=== PATIENT | male | born 1990 | race Caucasian/White ===

== ENCOUNTER → 2017-06-15 | Outpatient (CLI) | payer BC ==
[2017-06-15 16:20] LABS: ALT 40 U/L (21-72); AST 18 U/L (17-59); Alkaline Phosphatase 70 U/L (38-126); Anion Gap 10 mmol/L; Blood Urea Nitrogen 18 mg/dL (9-20); Calcium 9.3 mg/dL (8.4-10.2); Carbon Dioxide 26 mmol/L (22-30); Chloride 102 mmol/L (98-107); Cholesterol 139 mg/dL (<200); Glucose 120 mg/dL (74-99); HDL Cholesterol 37 mg/dL (40-60); Non-African American GFR(MDRD) >60 (>60 ml/min/1.73 sqM); Potassium 3.8 mmol/L (3.5-5.1); Sodium 138 mmol/L (137-145); Total Bilirubin 0.6 mg/dL (0.2-1.3); Total Protein 6.8 g/dL (6.3-8.2)
[2017-06-16 02:38] LABS: Urine Creatinine 183.9 mg/dL
== END | disposition home or self-care (01) ==
LOC: LABWHC1 15:35
PROVIDERS: ATTEND Internal Medicine Endocrinology, Diabetes & Metabolism
DX: E10.65 Type 1 diabetes mellitus with hyperglycemia (principal)
CPT/HCPCS: 36415; 80053; 80061; 82043; 82570

== ENCOUNTER → 2018-04-15 | Outpatient (CLI) | payer OTHER, BC ==
[2018-04-15 16:18] LABS: ALT 40 U/L (21-72); AST 22 U/L (17-59); Albumin 4.3 g/dL (3.5-5.0); Alkaline Phosphatase 54 U/L (38-126); Anion Gap 11 mmol/L; Blood Urea Nitrogen 17 mg/dL (9-20); Calcium 9.4 mg/dL (8.4-10.2); Carbon Dioxide 27 mmol/L (22-30); Chloride 102 mmol/L (98-107); Cholesterol 167 mg/dL (<200); Glucose 113 mg/dL (74-99); HDL Cholesterol 45 mg/dL (40-60); LDL Cholesterol,Calculated 111 mg/dL (0-99); Potassium 3.9 mmol/L (3.5-5.1); Sodium 140 mmol/L (137-145); Total Bilirubin 1.1 mg/dL (0.2-1.3); Total Protein 7.1 g/dL (6.3-8.2); Triglycerides 54 mg/dL (<150)
[2018-04-16 01:40] LABS: Hemoglobin A1C 7.5 % (4.0-6.0)
== END | disposition home or self-care (01) ==
LOC: LABWHC1 15:42
PROVIDERS: ATTEND Internal Medicine Endocrinology, Diabetes & Metabolism
DX: E10.65 Type 1 diabetes mellitus with hyperglycemia (principal)
CPT/HCPCS: 36415; 80053; 80061; 82043; 82570; 83036; 84443

== ENCOUNTER 2019-09-05 16:52 | Emergency (ER) | payer BC, OTHER ==
[2019-09-05 17:00] VITALS: BP 126/81; PULSE 80; TEMP 97.9
[2019-09-05 17:13] LABS: Glucose,Whole Blood 285 mg/dL (75-99)
--- NOTE | 2019-09-05 17:22 | ED ---
Recheck HPI - General Chief Complaint: Recheck/Abnormal Lab/Rx Stated Complaint: Needs insulin, High BP Time Seen by Provider: 09/05/19 17:03 Source: patient Mode of arrival: ambulatory Limitations: no limitations - History of Present Illness Initial Comments: Patient is a 29-year-old male, with past medical history diabetes type 1, presenting to the emergency department in need of a prescription for insulin. Patient states he recently switched insurance companies and he has been having an issue filling his prescription for insulin. Patient is currently out of insulin and needs more. He does have an appointment with the PCP in 2 days. He takes NovoLog. Patient has no other complaints today. He denies fever, chills, abdominal pain, nausea, vomiting. Upon arrival to the ER, his vital signs are stable. - Related Data Previous Rx's Medication Instructions Recorded Cephalexin [Keflex] 500 mg PO Q12HR 5 Days cap 02/02/16 Insulin Aspart [NovoLOG] 0 unit SQ DIRECTED #2 cart 09/05/19 Allergies Allergy/AdvReac Type Severity Reaction Status Date / Time No Known Allergies Allergy Verified 09/05/19 17:00 Review of Systems ROS Statement: Those systems with pertinent positive or pertinent negative responses have been documented in the HPI. ROS Other: All systems not noted in ROS Statement are negative. Past Medical History Past Medical History: Diabetes Mellitus History of Any Multi-Drug Resistant Organisms: None Reported Past Surgical History: Adenoidectomy Past Psychological History: No Psychological Hx Reported Smoking Status: Never smoker Past Alcohol Use History: None Reported Past Drug Use History: None Reported General Exam - General Exam Comments Initial Comments: GENERAL: Well-appearing, well-nourished and in no acute distress. HEAD: Atraumatic, normocephalic. EYES: Pupils equal round and reactive to light, extraocular movements intact, sclera anicteric, conjunctiva are normal. ENT: TMs normal, nares patent, oropharynx clear without exudates. Moist mucous membranes. NECK: Normal range of motion, supple without lymphadenopathy or JVD. LUNGS: Breath sounds clear to auscultation bilaterally and equal. No wheezes rales or rhonchi. HEART: Regular rate and rhythm without murmurs, rubs or gallops. ABDOMEN: Soft, nontender, normoactive bowel sounds. No guarding, no rebound. No masses appreciated. Continuous glucose monitor present. : Deferred EXTREMITIES: Normal range of motion, no pitting or edema. No clubbing or cyanosis. NEUROLOGICAL: Normal speech, normal gait. PSYCH: Normal mood, normal affect. SKIN: Warm, Dry, normal turgor, no rashes or lesions noted. Limitations: no limitations Course Vital Signs 09/05/19 09/05/19 16:56 17:28 Temperature 97.9 F Pulse Rate 80 Respiratory 18 20 Rate Blood Pressure 126/81 O2 Sat by Pulse 99 Oximetry Medical Decision Making - Medical Decision Making Patient is a 29-year-old male here for prescription for insulin. He is type I diabetic. Vital signs are stable upon arrival. He has an appointment with his PCP in 2 days. Patient's insulin will be refilled. Blood sugar today is 285. Patient will be given 4 units of insulin before discharge. He has no other complaints at this time. He is in agreement with this plan of care. Return parameters were discussed with the patient he verbalizes understanding. 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 Follow-up with PCP as discussed. Prescriptions: Insulin Aspart [NovoLOG] 0 unit SQ DIRECTED #2 cart Is patient prescribed a controlled substance at d/c from ED?: No Referrals: None,Stated [Primary Care Provider] - 1-2 days
[2019-09-05 17:29] VITALS: RESP 20
[2019-09-05] MEDS ORDERED: INSULIN ASPART (NovoLOG) 100 UNIT/ML VIAL SQ ONE (17:59)
== END 2019-09-05 18:11 | disposition home or self-care (01) ==
LOC: EC 16:52
DX: Z76.0 Encounter for issue of repeat prescription (principal); E10.9 Type 1 diabetes mellitus without complications; Z79.4 Long term (current) use of insulin
CPT/HCPCS: 36415; 99282

== ENCOUNTER 2020-11-01 13:16 | Emergency (ER) | payer OTHER ==
[2020-11-01 13:23] VITALS: BP 142/90; PULSE 82; RESP 20; TEMP 97.8
[2020-11-01] MEDS ORDERED: LIDOCAINE 1% INJ 10MG/ML (20 ML MDV) SQ ONE (13:58)
[2020-11-01] MEDS ORDERED: DIPH,PERTUS(ACELL)TETVAC-LF 0.5 ML VIAL IM ONE (14:20)
--- NOTE | 2020-11-01 14:55 | ED ---
Wound/Laceration HPI - General Chief Complaint: Wound/Laceration Stated Complaint: Head Lac Time Seen by Provider: 11/01/20 13:38 Source: patient Mode of arrival: ambulatory Limitations: no limitations - History of Present Illness Initial Comments: 30-year-old male presenting today for chief complaint of forehead laceration. Patient states he was bending over or when he cut his head on a sharp object. He states there is not a lot of force he denies concern for head injury itself. States he thought he might need suture repair presented to the ER for evaluation. Patient states his tetanus up-to-date. Denies any nausea vomiting visual changes headaches dizziness he denies syncope. Review systems negative upon arrival patient appears well nontoxic no acute distress - Related Data Previous Rx's Medication Instructions Recorded Insulin Aspart [NovoLOG] 0 unit SQ DIRECTED #2 cart 09/05/19 Allergies Allergy/AdvReac Type Severity Reaction Status Date / Time No Known Allergies Allergy Verified 09/05/19 17:00 Review of Systems ROS Statement: Those systems with pertinent positive or pertinent negative responses have been documented in the HPI. ROS Other: All systems not noted in ROS Statement are negative. Past Medical History Past Medical History: Diabetes Mellitus History of Any Multi-Drug Resistant Organisms: None Reported Past Surgical History: Adenoidectomy Past Psychological History: No Psychological Hx Reported Smoking Status: Never smoker Past Alcohol Use History: None Reported Past Drug Use History: None Reported General Exam - General Exam Comments Initial Comments: General: The patient is awake and alert, in no distress, and does not appear acutely ill. Eye: +3 mm pupils are equal, round and reactive to light, extra-ocular movements are intact. No nystagmus. There is normal conjunctiva bilaterally. No signs of icterus. Ears, nose, mouth and throat: There are moist mucous membranes and no oral lesions. Neck: The neck is supple, there is no tenderness or JVD. Cardiovascular: There is a regular rate and rhythm. No murmur, rub or gallop is appreciated. Respiratory: Lungs are clear to auscultation, respirations are non-labored, breath sounds are equal. No wheezes, stridor, rales, or rhonchi. Gastrointestinal: Soft, non-distended, non-tender abdomen without masses or organomegaly noted. There is no rebound or guarding present. Musculoskeletal: Normal ROM, no tenderness. Strength 5/5. Sensation intact. radial and DP pulses equal bilaterally 2+. Neurological: A&O x 3. CN II-XII intact grossly, There are no obvious motor or sensory deficits. Coordination appears grossly intact. Speech is normal. Skin: Skin is warm and dry and no rashes. 6cm laceration of the forehead. Psychiatric: Cooperative, appropriate mood & affect, normal judgment. Limitations: no limitations Course Vital Signs 11/01/20 13:20 Temperature 97.8 F Pulse Rate 82 Respiratory 20 Rate Blood Pressure 142/90 O2 Sat by Pulse 98 Oximetry Procedures - Laceration Laceration #1 Consent Obtained: verbal consent Indication: laceration Size (cm): 6 Description: linear Depth: simple, single layer Anesthesia Technique: local infiltration Amount (mls): 1 Pre-repair: wound explored, irrigated extensively Size of Sutures: 6-0 Number of Sutures: 8 Patient Tolerated Procedure: well, no complications Medical Decision Making - Medical Decision Making cc forheead laceratino from sharp object. no fall. no scalp hematoma. no foreign body. overall superficial but does require repaired. irrigated. repaired. pt tolerated well. return parameters and care discussed pt discharged appearing well Disposition Clinical Impression: Forehead laceration Disposition: HOME SELF-CARE Condition: Good Instructions (If sedation given, give patient instructions): Care For Your Stitches (ED), Facial Laceration (ED) Additional Instructions: Please use medication as discussed. Please follow-up for suture removal in 5 days, keep covered at work, apply neosporin at night and return for signs of infection (increasing redness, drainage) Please return to emergency room if the symptoms increase or worsen or for any other concerns. Is patient prescribed a controlled substance at d/c from ED?: No Referrals: Jennifer Perez MD [Primary Care Provider] - 1-2 days Time of Disposition: 14:55
== END 2020-11-01 15:05 | disposition home or self-care (01) ==
LOC: EC 13:16
DX: S01.81XA Laceration without foreign body of other part of head, initial encounter (principal); E11.9 Type 2 diabetes mellitus without complications; Z79.4 Long term (current) use of insulin; W26.9XXA Contact with unspecified sharp object(s), initial encounter
CPT/HCPCS: 99282; 12014; J2001

== ENCOUNTER 2023-05-26 11:23 | Inpatient (IN) | payer OTHER ==
[2023-05-26] MEDS ORDERED: SODIUM CHLORIDE 0.9% 2,000 ML IV ONE ×2 (11:43→16:49)
[2023-05-26 12:42] LABS: ALT 24 U/L (4-49); AST 21 U/L (17-59); African American GFR (CKD) >90 (>60 ml/min/1.73 sqM); Albumin 5.3 g/dL (3.5-5.0); Alkaline Phosphatase 109 U/L (38-126); Anion Gap 26 mmol/L; Blood Urea Nitrogen 19 mg/dL (9-20); Calcium 9.4 mg/dL (8.4-10.2); Carbon Dioxide 10 mmol/L (22-30); Chloride 96 mmol/L (98-107); Glucose 378 mg/dL (74-99); Magnesium 1.9 mg/dL (1.6-2.3); Non-African American GFR(CKD) >90 (>60 ml/min/1.73 sqM); Potassium 5.3 mmol/L (3.5-5.1); Sodium 132 mmol/L (137-145); Total Bilirubin 1.2 mg/dL (0.2-1.3); Total Protein 8.4 g/dL (6.3-8.2)
[2023-05-26 12:48] LABS: VBG PH 7.16 (7.31-7.41)
[2023-05-26 13:38] LABS: Basophils % (A) 0 %; Eosinophils % (A) 0 %; HCT 51.4 % (39.0-53.0); HGB 17.5 gm/dL (13.0-17.5); Lymphocytes # (A) 0.6 k/uL (1.0-4.8); Lymphocytes % (A) 6 %; MCH 29.3 pg (25.0-35.0); MCV 86.2 fL (80.0-100.0); Mean Platelet Volume 8.8; Monocytes # (A) 0.4 k/uL (0-1.0); Monocytes % (A) 4 %; Neutrophils % (A) 90 %; Platelet Count 259 k/uL (150-450); RBC 5.97 m/uL (4.30-5.90); RDW 12.7 % (11.5-15.5); WBC 11.1 k/uL (3.8-10.6)
[2023-05-26 13:41] LABS: Appearance,Urine Clear (Clear); Bilirubin,Urine Negative (Negative); Blood,Urine Negative (Negative); Color,Urine Colorless; Glucose,Urine (UA) 4+ (Negative); Leukocyte Esterase,Urine Negative (Negative); Nitrite,Urine Negative (Negative); Protein,Urine Trace (Negative); Specific Gravity,Urine 1.027 (1.001-1.035); Urobilinogen,Urine <2.0 mg/dL (<2.0)
[2023-05-26 13:51] LABS: Ketones,Urine 4+ (Negative)
--- NOTE | 2023-05-26 13:54 | ED ---
General Adult HPI - General Chief complaint: Recheck/Abnormal Lab/Rx Stated complaint: high blood sugar Time Seen by Provider: 05/26/23 11:41 Source: patient, RN notes reviewed Mode of arrival: ambulatory Limitations: no limitations - History of Present Illness Initial comments: 33-year-old male presents emergency Department chief complaint of hyperglycemia. Patient states his insulin pump broke he contact the company is supposed to be here today by his blood sugar was elevated. Patient states he just feels off. Denies any significant vomiting fever or chills no recent URI symptoms. Patient any chest pain or palpitations denies any headache or dizziness. - Related Data Previous Rx's Medication Instructions Recorded Insulin Aspart [NovoLOG] 0 unit SQ DIRECTED #2 cart 09/05/19 Allergies Allergy/AdvReac Type Severity Reaction Status Date / Time No Known Allergies Allergy Verified 05/26/23 11:39 Review of Systems ROS Statement: Those systems with pertinent positive or pertinent negative responses have been documented in the HPI. ROS Other: All systems not noted in ROS Statement are negative. Past Medical History Past Medical History: Diabetes Mellitus History of Any Multi-Drug Resistant Organisms: None Reported Past Surgical History: Adenoidectomy Past Psychological History: No Psychological Hx Reported Smoking Status: Never smoker Past Alcohol Use History: None Reported Past Drug Use History: None Reported General Exam Limitations: no limitations General appearance: alert, in no apparent distress Head exam: Present: atraumatic, normocephalic, normal inspection Eye exam: Present: normal appearance, PERRL, EOMI. Absent: scleral icterus, conjunctival injection, periorbital swelling Respiratory exam: Present: normal lung sounds bilaterally. Absent: respiratory distress, wheezes, rales, rhonchi, stridor Cardiovascular Exam: Present: normal rhythm, tachycardia, normal heart sounds. Absent: systolic murmur, diastolic murmur, rubs, gallop, clicks GI/Abdominal exam: Present: soft, normal bowel sounds. Absent: distended, tenderness, guarding, rebound, rigid Neurological exam: Present: alert, oriented X3 Course Vital Signs 05/26/23 05/26/23 11:37 13:12 Temperature 97.9 F Pulse Rate 102 H 106 H Respiratory 18 18 Rate Blood Pressure 123/69 138/80 O2 Sat by Pulse 97 97 Oximetry Medical Decision Making - Medical Decision Making Was pt. sent in by a medical professional or institution ([employer], PROCESS MANUFACTURING ENGINEER, urgent care, hospital, or usp...) When possible be specific @ -[No] Did you speak to anyone other than the patient for history (EMS, parent, family, police, friend...)? What history was obtained from this source @ -[No] Did you review nursing and triage notes (agree or disagree)? Why? @ -[I reviewed and agree with nursing and triage notes] Were old charts reviewed (outside hosp., previous admission, EMS record, old EKG, old radiological studies, urgent care reports/EKG's, usp records)? Report findings @ -[No old charts were reviewed] Differential Diagnosis (chest pain, altered mental status, abdominal pain women, abdominal pain men, vaginal bleeding, weakness, fever, dyspnea, syncope, headache, dizziness, GI bleed, back pain, seizure, CVA, palpatations, mental health, musculoskeletal)? @ -[Hyperglycemia, DKA] EKG interpreted by me (3pts min.). @ -[None] X-rays interpreted by me (1pt min.). @ -[None done] CT interpreted by me (1pt min.). @ -[None done] U/S interpreted by me (1pt. min.). @ -[None done] What testing was considered but not performed or refused? (CT, X-rays, U/S, labs)? Why? @ -[None] What meds were considered but not given or refused? Why? @ -[None] Did you discuss the management of the patient with other professionals (professionals i.e. [employer] Larry, PROCESS MANUFACTURING ENGINEER, lab, RT, psych nurse, social work administrator, field installer, teacher, supply officer, catalytic case operator)? Give summary @ -[Sound physician for admission for DKA] Was smoking cessation discussed for >3mins.? @ -[No] Was critical care preformed (if so, how long)? @ -[35 mins Were there social determinants of health that impacted care today? How? (Homelessness, low income, unemployed, alcoholism, drug addiction, transportation, low edu. Level, literacy, decrease access to med. care, correction, rehab)? @ -[No] Was there de-escalation of care discussed even if they declined (Discuss DNR or withdrawal of care, Hospice)? DNR status @ -[No] What co-morbidities impacted this encounter? (DM, HTN, Smoking, COPD, CAD, Cancer, CVA, ARF, Chemo, Hep., AIDS, mental health diagnosis, sleep apnea, morbid obesity)? @ -[Diabetes] Was patient admitted / discharged? Hospital course, mention meds given and route, prescriptions, significant lab abnormalities, going to OR and other pertinent info. @ -[Admitted patient's found to be in DKA. Patient be me shows pH of 7.1 patient has blood sugar of 378 patient was given 2 L normal saline bolus patient DKA protocol. Patient will be admitted for further treatment and management.] Undiagnosed new problem with uncertain prognosis? @ -[No] Drug Therapy requiring intensive monitoring for toxicity (Heparin, Nitro, Insulin, Cardizem)? @ -[No] Were any procedures done? @ -[No] Diagnosis/symptom? @ -[DKA] Acute, or Chronic, or Acute on Chronic? @ -[Acute] Uncomplicated (without systemic symptoms) or Complicated (systemic symptoms)? @ -[ complicated] Side effects of treatment? @ -[No] Exacerbation, Progression, or Severe Exacerbation? @ -[No] Poses a threat to life or bodily function? How? (Chest pain, USA, ID, pneumonia, PE, COPD, DKA, ARF, appy, cholecystitis, CVA, Diverticulitis, Homicidal, Suicidal, threat to staff... and all critical care pts) @ -[Yes patient has metabolic acidosis.] - Lab Data Result diagrams: 05/26/23 11:42 05/26/23 11:42 Lab Results 05/26/23 05/26/23 05/26/23 Range/Units 11:42 11:42 11:42 WBC 11.1 H (3.8-10.6) k/uL RBC 5.97 H (4.30-5.90) m/uL Hgb 17.5 (13.0-17.5) gm/dL Hct 51.4 (39.0-53.0) % MCV 86.2 (80.0-100.0) fL MCH 29.3 (25.0-35.0) pg MCHC 34.0 (31.0-37.0) g/dL RDW 12.7 (11.5-15.5) % Plt Count 259 (150-450) k/uL MPV 8.8 Neutrophils % 90 % Lymphocytes % 6 % Monocytes % 4 % Eosinophils % 0 % Basophils % 0 % Neutrophils # 10.0 H (1.3-7.7) k/uL Lymphocytes # 0.6 L (1.0-4.8) k/uL Monocytes # 0.4 (0-1.0) k/uL Eosinophils # 0.0 (0-0.7) k/uL Basophils # 0.0 (0-0.2) k/uL VBG pH (7.31-7.41) VBG pCO2 (37-51) mmHg VBG HCO3 (24-28) mmol/L Sodium 132 L (137-145) mmol/L Potassium 5.3 H (3.5-5.1) mmol/L Chloride 96 L (98-107) mmol/L Carbon Dioxide 10 L (22-30) mmol/L Anion Gap 26 mmol/L BUN 19 (9-20) mg/dL Creatinine 0.81 (0.66-1.25) mg/dL Est GFR (CKD-EPI)AfAm >90 (>60 ml/min/1.73 sqM) Est GFR (CKD-EPI)NonAf >90 (>60 ml/min/1.73 sqM) Glucose 378 H (74-99) mg/dL Plasma Lactic Acid Loyd 1.7 (0.7-2.0) mmol/L Calcium 9.4 (8.4-10.2) mg/dL Magnesium 1.9 (1.6-2.3) mg/dL Total Bilirubin 1.2 (0.2-1.3) mg/dL AST 21 (17-59) U/L ALT 24 (4-49) U/L Alkaline Phosphatase 109 (38-126) U/L Total Protein 8.4 H (6.3-8.2) g/dL Albumin 5.3 H (3.5-5.0) g/dL Acetone, Qual Positive (Negative) 05/26/23 Range/Units 11:42 WBC (3.8-10.6) k/uL RBC (4.30-5.90) m/uL Hgb (13.0-17.5) gm/dL Hct (39.0-53.0) % MCV (80.0-100.0) fL MCH (25.0-35.0) pg MCHC (31.0-37.0) g/dL RDW (11.5-15.5) % Plt Count (150-450) k/uL MPV Neutrophils % % Lymphocytes % % Monocytes % % Eosinophils % % Basophils % % Neutrophils # (1.3-7.7) k/uL Lymphocytes # (1.0-4.8) k/uL Monocytes # (0-1.0) k/uL Eosinophils # (0-0.7) k/uL Basophils # (0-0.2) k/uL VBG pH 7.16 L* (7.31-7.41) VBG pCO2 40 (37-51) mmHg VBG HCO3 14 L (24-28) mmol/L Sodium (137-145) mmol/L Potassium (3.5-5.1) mmol/L Chloride (98-107) mmol/L Carbon Dioxide (22-30) mmol/L Anion Gap mmol/L BUN (9-20) mg/dL Creatinine (0.66-1.25) mg/dL Est GFR (CKD-EPI)AfAm (>60 ml/min/1.73 sqM) Est GFR (CKD-EPI)NonAf (>60 ml/min/1.73 sqM) Glucose (74-99) mg/dL Plasma Lactic Acid Loyd (0.7-2.0) mmol/L Calcium (8.4-10.2) mg/dL Magnesium (1.6-2.3) mg/dL Total Bilirubin (0.2-1.3) mg/dL AST (17-59) U/L ALT (4-49) U/L Alkaline Phosphatase (38-126) U/L Total Protein (6.3-8.2) g/dL Albumin (3.5-5.0) g/dL Acetone, Qual (Negative) Critical Care Time Critical Care Time: Yes Total Critical Care Time: 35 Disposition Clinical Impression: DKA (diabetic ketoacidosis) Disposition: ADMITTED IP TO THIS [facility] Condition: Fair Referrals: None,Stated [Primary Care Provider] - 1-2 days Time of Disposition: 13:54
[2023-05-26 14:30] LABS: Glucose,Whole Blood 319 mg/dL (70-110)
[2023-05-26] MEDS: SODIUM CHLORIDE 0.9% 1,000 ML IV SCH ×3 (14:49→23:42)
[2023-05-26] MEDS: INSULIN REGULAR 100 UNIT in SODIUM CHLORIDE 0.9% 100 ML IV SCH (14:50)
[2023-05-26] MEDS ORDERED: ONDANSETRON 4 MG/2 ML VIAL IVP PRN (15:29)
[2023-05-26] MEDS ORDERED: ACETAMINOPHEN TAB 325 MG TAB PO PRN (15:29)
[2023-05-26 15:31] LABS: Glucose,Whole Blood 289 mg/dL (70-110)
[2023-05-26 16:24] LABS: African American GFR (CKD) >90 (>60 ml/min/1.73 sqM); Anion Gap 23 mmol/L; Blood Urea Nitrogen 18 mg/dL (9-20); Chloride 102 mmol/L (98-107); Glucose 283 mg/dL (74-99); Non-African American GFR(CKD) >90 (>60 ml/min/1.73 sqM); Phosphorus 5.2 mg/dL (2.5-4.5); Sodium 134 mmol/L (137-145)
[2023-05-26 16:30] LABS: Glucose,Whole Blood 244 mg/dL (70-110)
[2023-05-26 16:43] LABS: Carbon Dioxide 9 mmol/L (22-30)
--- NOTE | 2023-05-26 16:55 | P.HPIM ---
History of Present Illness H&P Date: 05/26/23 Chief Complaint: nausea, vomiting 33-year-old man with medical history type 1 diabetes on an insulin pump presented for evaluation nausea, vomiting. Patient says that his insulin pump broke several days ago and he's been waiting for a replacement, however, noted that he continued to have increasing blood sugars at home. Patient was oriented to the 300s. He also started developing feelings of generalized uneasiness with nausea and vomiting. Given this constellation of symptoms he presented to the emergency room for further evaluation. Patient does note that he's been trying to drink a rigorous amount of water to stay hydrated and flush out the sugar. He denies fevers, chills. Reports nausea, vomiting. Denies chest pain, palpitations, sick, presyncope, cough, dyspnea. Ports mild abdominal pain. Denies constipation, diarrhea, dysuria, dyschezia, numbness/weakness of extremities. In the emergency room, patient was afebrile, 123/69, heart rate 102, 97% on room air. CBC showed mild leukocytosis to 11.1. Basic metabolic panel showed sodium of 132, potassium 5.3, chloride 96, CO2 of 10, anion gap of 26, BUN of 19, creatinine of 0.81. Liver function test showed albumin of 5.3. Urinalysis showed glucose of 4+, 4+ ketones. Acetone was positive in the blood. PH was 7.16, pCO2 was 40. Patient was given 2 L of fluid bolus in the emergency room and started on an insulin drip and transferred to the cardiac selective unit after discussion with the emergency room provider. All Systems reviewed and pertinent positives and negatives noted in HPI, all other symptoms are negative Gen: in no apparent distress, resting comfortably in bed Eyes: PERRL, no scleral injection or icterus HENT: normocephalic, atraumatic, good hearing acuity, moist mucous membranes Neck: no tracheal deviation, full range of motion Resp: good air exchange, breathing comfortably with no accessory muscle use, no tactile fremitus CVS: good distal perfusion x 4, no pitting edema GI: soft, NTTP, ND, no hepatosplenomegaly : no suprapubic tenderness, no CVAT, plaafox catheter not present MSK: no clubbing, no cyanosis, no noted contractures of extremities Skin: no noted rashes, petechiae; temperature of skin is appropriate Neuro: moving all extremities without signs of weakness, CN II-XII intact Psych: cooperative, euthymic mood, insight and judgment intact Labs as above Assessment/plan: Diabetic ketoacidosis, type I -Continue insulin drip -2 L of fluid bolus ordered -Electrolytes every 4 hours -Continue insulin drip -Zofran 4 mg IV every 4 hours when necessary for nausea -Tylenol 650 mg every 6 hours when necessary for pain Patient is full code Past Medical History Past Medical History: Diabetes Mellitus History of Any Multi-Drug Resistant Organisms: None Reported Past Surgical History: Adenoidectomy Past Psychological History: No Psychological Hx Reported Smoking Status: Never smoker Past Alcohol Use History: None Reported Past Drug Use History: None Reported Medications and Allergies Home Medications Medication Instructions Recorded Confirmed Type INSULIN LISPRO (For Pump) [humaLOG 0.01 units SQ-PUMP CONTINUOUS 05/26/23 05/26/23 History (For Pump)] Levocetirizine Dihydrochloride 5 mg PO DAILY 05/26/23 05/26/23 History [Xyzal] Allergies Allergy/AdvReac Type Severity Reaction Status Date / Time No Known Allergies Allergy Verified 05/26/23 14:03 Physical Exam Osteopathic Statement: *. No significant issues noted on an osteopathic structural exam other than those noted in the History and Physical/Consult. Vitals: Vital Signs Temp Pulse Pulse Resp BP BP Pulse Ox 05/26/23 15:23 98.7 F 109 H 22 149/82 96 05/26/23 14:54 98.2 F 98 18 137/66 98 05/26/23 13:12 106 H 18 138/80 97 05/26/23 11:37 97.9 F 102 H 18 123/69 97 Intake and Output 05/26/23 05/26/23 05/26/23 06:59 14:59 22:59 Other: Weight 92.986 kg Results CBC & Chem 7: 05/26/23 11:42 05/26/23 11:42 Labs: Abnormal Lab Results - Last 24 Hours (Table) 05/26/23 05/26/23 05/26/23 Range/Units 11:42 11:42 11:42 WBC 11.1 H (3.8-10.6) k/uL RBC 5.97 H (4.30-5.90) m/uL Neutrophils # 10.0 H (1.3-7.7) k/uL Lymphocytes # 0.6 L (1.0-4.8) k/uL VBG pH 7.16 L* (7.31-7.41) VBG HCO3 14 L (24-28) mmol/L Sodium 132 L (137-145) mmol/L Potassium 5.3 H (3.5-5.1) mmol/L Chloride 96 L (98-107) mmol/L Carbon Dioxide 10 L (22-30) mmol/L Glucose 378 H (74-99) mg/dL POC Glucose (mg/dL) (70-110) mg/dL Total Protein 8.4 H (6.3-8.2) g/dL Albumin 5.3 H (3.5-5.0) g/dL Urine Protein (Negative) Urine Glucose (UA) (Negative) Urine Ketones (Negative) 05/26/23 05/26/23 05/26/23 Range/Units 12:15 14:28 15:29 WBC (3.8-10.6) k/uL RBC (4.30-5.90) m/uL Neutrophils # (1.3-7.7) k/uL Lymphocytes # (1.0-4.8) k/uL VBG pH (7.31-7.41) VBG HCO3 (24-28) mmol/L Sodium (137-145) mmol/L Potassium (3.5-5.1) mmol/L Chloride (98-107) mmol/L Carbon Dioxide (22-30) mmol/L Glucose (74-99) mg/dL POC Glucose (mg/dL) 319 H 289 H (70-110) mg/dL Total Protein (6.3-8.2) g/dL Albumin (3.5-5.0) g/dL Urine Protein Trace H (Negative) Urine Glucose (UA) 4+ H (Negative) Urine Ketones 4+ H (Negative) 05/26/23 Range/Units 16:28 WBC (3.8-10.6) k/uL RBC (4.30-5.90) m/uL Neutrophils # (1.3-7.7) k/uL Lymphocytes # (1.0-4.8) k/uL VBG pH (7.31-7.41) VBG HCO3 (24-28) mmol/L Sodium (137-145) mmol/L Potassium (3.5-5.1) mmol/L Chloride (98-107) mmol/L Carbon Dioxide (22-30) mmol/L Glucose (74-99) mg/dL POC Glucose (mg/dL) 244 H (70-110) mg/dL Total Protein (6.3-8.2) g/dL Albumin (3.5-5.0) g/dL Urine Protein (Negative) Urine Glucose (UA) (Negative) Urine Ketones (Negative)
[2023-05-26] MEDS: D5-0.45% NACL WITH KCL 20MEQ/L 1,000 ML IV SCH ×2 (17:18→21:59)
[2023-05-26 17:31] LABS: Glucose,Whole Blood 236 mg/dL (70-110)
[2023-05-26 18:30] LABS: Glucose,Whole Blood 179 mg/dL (70-110)
[2023-05-26 19:28] LABS: Glucose,Whole Blood 173 mg/dL (70-110)
[2023-05-26 20:22] LABS: African American GFR (CKD) >90 (>60 ml/min/1.73 sqM); Anion Gap 16 mmol/L; Blood Urea Nitrogen 15 mg/dL (9-20); Carbon Dioxide 11 mmol/L (22-30); Chloride 107 mmol/L (98-107); Glucose 169 mg/dL (74-99); Non-African American GFR(CKD) >90 (>60 ml/min/1.73 sqM); Phosphorus 3.6 mg/dL (2.5-4.5); Potassium 4.7 mmol/L (3.5-5.1); Sodium 134 mmol/L (137-145)
[2023-05-26 20:32] LABS: Glucose,Whole Blood 160 mg/dL (70-110)
[2023-05-26] MEDS ORDERED: diphenhydrAMINE 25 MG CAP PO STA (21:28)
[2023-05-26 21:53] LABS: Glucose,Whole Blood 147 mg/dL (70-110)
[2023-05-26 23:00] LABS: Glucose,Whole Blood 150 mg/dL (70-110)
[2023-05-27] LABS: Glucose,Whole Blood 162 mg/dL (70-110)
[2023-05-27 01:02] LABS: Glucose,Whole Blood 135 mg/dL (70-110)
[2023-05-27 01:33] LABS: African American GFR (CKD) >90 (>60 ml/min/1.73 sqM); Anion Gap 10 mmol/L; Blood Urea Nitrogen 11 mg/dL (9-20); Carbon Dioxide 15 mmol/L (22-30); Chloride 109 mmol/L (98-107); Glucose 160 mg/dL (74-99); Non-African American GFR(CKD) >90 (>60 ml/min/1.73 sqM); Potassium 3.9 mmol/L (3.5-5.1); Sodium 134 mmol/L (137-145)
[2023-05-27] MEDS: INSULIN REGULAR 100 UNIT in SODIUM CHLORIDE 0.9% 100 ML IV SCH (01:56)
[2023-05-27 01:59] LABS: Glucose,Whole Blood 154 mg/dL (70-110)
[2023-05-27 03:00] LABS: Glucose,Whole Blood 157 mg/dL (70-110)
[2023-05-27 04:02] LABS: Glucose,Whole Blood 168 mg/dL (70-110)
[2023-05-27 04:56] LABS: Glucose,Whole Blood 166 mg/dL (70-110)
[2023-05-27 06:04] LABS: Glucose,Whole Blood 155 mg/dL (70-110)
[2023-05-27 06:20] LABS: African American GFR (CKD) >90 (>60 ml/min/1.73 sqM); Anion Gap 12 mmol/L; Blood Urea Nitrogen 10 mg/dL (9-20); Calcium 8.1 mg/dL (8.4-10.2); Carbon Dioxide 15 mmol/L (22-30); Chloride 108 mmol/L (98-107); Glucose 175 mg/dL (74-99); Non-African American GFR(CKD) >90 (>60 ml/min/1.73 sqM); Potassium 4.5 mmol/L (3.5-5.1); Sodium 135 mmol/L (137-145)
[2023-05-27] MEDS: D5-0.45% NACL WITH KCL 20MEQ/L 1,000 ML IV SCH ×2 (06:41→16:52)
[2023-05-27 07:00] LABS: Glucose,Whole Blood 169 mg/dL (70-110)
[2023-05-27 08:06] LABS: Glucose,Whole Blood 166 mg/dL (70-110)
[2023-05-27 09:08] LABS: Glucose,Whole Blood 172 mg/dL (70-110)
[2023-05-27 10:05] LABS: Glucose,Whole Blood 164 mg/dL (70-110)
[2023-05-27 10:59] LABS: African American GFR (CKD) >90 (>60 ml/min/1.73 sqM); Anion Gap 10 mmol/L; Blood Urea Nitrogen 8 mg/dL (9-20); Calcium 8.2 mg/dL (8.4-10.2); Carbon Dioxide 14 mmol/L (22-30); Chloride 109 mmol/L (98-107); Glucose 184 mg/dL (74-99); Non-African American GFR(CKD) >90 (>60 ml/min/1.73 sqM); Sodium 133 mmol/L (137-145)
[2023-05-27] MEDS ORDERED: INSULIN DETEMIR (LEVEMIR) 100 UNIT/ML SYR SQ ONE (11:00)
[2023-05-27 11:03] LABS: Potassium 4.6 mmol/L (3.5-5.1)
[2023-05-27 11:44] LABS: Glucose,Whole Blood 287 mg/dL (70-110)
[2023-05-27] MEDS: INSULIN ASPART (NovoLOG) 100 UNIT/ML VIAL SQ SCH ×3 (11:52→20:34)
[2023-05-27 13:11] VITALS: BMI 29.4
--- NOTE | 2023-05-27 15:50 | P.PN ---
Subjective Progress Note Date: 05/27/23 N/v and abd pain have resolved, gap has closed. Pt is able to tolerate a diet. Gen: in no apparent distress, resting comfortably in bed Eyes: PERRL, no scleral injection or icterus HENT: normocephalic, atraumatic, good hearing acuity, moist mucous membranes Neck: no tracheal deviation, full range of motion Resp: good air exchange, breathing comfortably with no accessory muscle use, no tactile fremitus CVS: good distal perfusion x 4, no pitting edema GI: soft, NTTP, ND, no hepatosplenomegaly : no suprapubic tenderness, no CVAT, palafox catheter not present MSK: no clubbing, no cyanosis, no noted contractures of extremities Skin: no noted rashes, petechiae; temperature of skin is appropriate Neuro: moving all extremities without signs of weakness, CN II-XII intact Psych: cooperative, euthymic mood, insight and judgment intact Hospital Course: 33-year-old man with medical history type 1 diabetes on an insulin pump presented for evaluation nausea, vomiting. In the emergency room, patient was afebrile, 123/69, heart rate 102, 97% on room air. CBC showed mild leukocytosis to 11.1. Basic metabolic panel showed sodium of 132, potassium 5.3, chloride 96, CO2 of 10, anion gap of 26, BUN of 19, creatinine of 0.81. Liver function test showed albumin of 5.3. Urinalysis showed glucose of 4+, 4+ ketones. Acetone was positive in the blood. PH was 7.16, pCO2 was 40. Patient was given 2 L of fluid bolus in the emergency room and started on an insulin drip and transferred to the cardiac selective unit after discussion with the emergency room provider. 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 to program his pump settings upon discharge -IVF decreased to 75cc/hr -Zofran 4 mg IV every 4 hours when necessary for nausea -Tylenol 650 mg every 6 hours when necessary for pain -Advance diet to carb consistent Patient is full code Objective - Vital Signs Vital signs: Vital Signs Temp 98.4 F 05/27/23 12:00 Pulse 89 05/27/23 12:00 Resp 14 05/27/23 12:00 BP 122/83 05/27/23 12:00 Pulse Ox 98 05/27/23 12:00 FiO2 Intake & Output 05/26/23 05/27/23 05/27/23 18:59 06:59 18:59 Intake Total 2520 81.175 2120 Output Total 900 Balance 1620 81.175 2120 Weight 92.986 kg 92.986 kg Intake: Intake, IV Titration 2520 81.175 1200 Amount D5-0.45% NaCl with KCl 1200 20Meq/l 1,000 ml @ 75 mls /hr IV .[id number] [facility] Rx#: [id number] Insulin Regular 100 unit 20 81.175 In Sodium Chloride 0.9% 100 ml @ 0.1 UNITS/KG/HR 9.392 mls/hr IV .[id number] [facility] Rx#:[id number] Sodium Chloride 0.9% 1, 500 000 ml @ 200 mls/hr IV . Q5H [facility] Rx#:[id number] Sodium Chloride 0.9% 2, 2000 000 ml @ 999 mls/hr IV . Q2H1M [facility] Rx#:[id number] Oral 920 Output: Urine 900 Other: Voiding Method Toilet Toilet Urinal Urinal # Voids 1 - Labs CBC & Chem 7: 05/26/23 11:42 05/27/23 10:03 Labs: Abnormal Lab Results - Last 24 Hours (Table) 05/26/23 05/26/23 05/26/23 Range/Units 16:03 16:28 17:28 Sodium 134 L (137-145) mmol/L Chloride (98-107) mmol/L Carbon Dioxide 9 L* (22-30) mmol/L BUN (9-20) mg/dL Creatinine (0.66-1.25) mg/dL Glucose 283 H (74-99) mg/dL POC Glucose (mg/dL) 244 H 236 H (70-110) mg/dL Calcium (8.4-10.2) mg/dL Phosphorus 5.2 H (2.5-4.5) mg/dL 05/26/23 05/26/23 05/26/23 Range/Units 18:29 19:26 19:47 Sodium 134 L (137-145) mmol/L Chloride (98-107) mmol/L Carbon Dioxide 11 L (22-30) mmol/L BUN (9-20) mg/dL Creatinine 0.61 L (0.66-1.25) mg/dL Glucose 169 H (74-99) mg/dL POC Glucose (mg/dL) 179 H 173 H (70-110) mg/dL Calcium (8.4-10.2) mg/dL Phosphorus (2.5-4.5) mg/dL 05/26/23 05/26/23 05/26/23 Range/Units 20:30 21:51 22:58 Sodium (137-145) mmol/L Chloride (98-107) mmol/L Carbon Dioxide (22-30) mmol/L BUN (9-20) mg/dL Creatinine (0.66-1.25) mg/dL Glucose (74-99) mg/dL POC Glucose (mg/dL) 160 H 147 H 150 H (70-110) mg/dL Calcium (8.4-10.2) mg/dL Phosphorus (2.5-4.5) mg/dL 05/26/23 05/27/23 05/27/23 Range/Units 23:58 00:49 00:59 Sodium 134 L (137-145) mmol/L Chloride 109 H (98-107) mmol/L Carbon Dioxide 15 L (22-30) mmol/L BUN (9-20) mg/dL Creatinine 0.57 L (0.66-1.25) mg/dL Glucose 160 H (74-99) mg/dL POC Glucose (mg/dL) 162 H 135 H (70-110) mg/dL Calcium 8.0 L (8.4-10.2) mg/dL Phosphorus (2.5-4.5) mg/dL 05/27/23 05/27/23 05/27/23 Range/Units 01:57 02:58 03:57 Sodium (137-145) mmol/L Chloride (98-107) mmol/L Carbon Dioxide (22-30) mmol/L BUN (9-20) mg/dL Creatinine (0.66-1.25) mg/dL Glucose (74-99) mg/dL POC Glucose (mg/dL) 154 H 157 H 168 H (70-110) mg/dL Calcium (8.4-10.2) mg/dL Phosphorus (2.5-4.5) mg/dL 05/27/23 05/27/23 05/27/23 Range/Units 04:54 05:40 06:01 Sodium 135 L (137-145) mmol/L Chloride 108 H (98-107) mmol/L Carbon Dioxide 15 L (22-30) mmol/L BUN (9-20) mg/dL Creatinine 0.56 L (0.66-1.25) mg/dL Glucose 175 H (74-99) mg/dL POC Glucose (mg/dL) 166 H 155 H (70-110) mg/dL Calcium 8.1 L (8.4-10.2) mg/dL Phosphorus (2.5-4.5) mg/dL 05/27/23 05/27/23 05/27/23 Range/Units 06:59 08:04 09:06 Sodium (137-145) mmol/L Chloride (98-107) mmol/L Carbon Dioxide (22-30) mmol/L BUN (9-20) mg/dL Creatinine (0.66-1.25) mg/dL Glucose (74-99) mg/dL POC Glucose (mg/dL) 169 H 166 H 172 H (70-110) mg/dL Calcium (8.4-10.2) mg/dL Phosphorus (2.5-4.5) mg/dL 05/27/23 05/27/23 05/27/23 Range/Units 10:03 10:03 11:39 Sodium 133 L (137-145) mmol/L Chloride 109 H (98-107) mmol/L Carbon Dioxide 14 L (22-30) mmol/L BUN 8 L (9-20) mg/dL Creatinine 0.54 L (0.66-1.25) mg/dL Glucose 184 H (74-99) mg/dL POC Glucose (mg/dL) 164 H 287 H (70-110) mg/dL Calcium 8.2 L (8.4-10.2) mg/dL Phosphorus (2.5-4.5) mg/dL
[2023-05-27 16:57] LABS: Glucose,Whole Blood 185 mg/dL (70-110)
[2023-05-27 19:38] LABS: Glucose,Whole Blood 238 mg/dL (70-110)
[2023-05-27] MEDS ORDERED: DEXTROSE 50% SYRINGE 50 ML IVP PRN ×2 (20:20)
[2023-05-28 05:57] LABS: Glucose,Whole Blood 183 mg/dL (70-110)
[2023-05-28] MEDS: INSULIN ASPART (NovoLOG) 100 UNIT/ML VIAL SQ SCH ×2 (06:47)
[2023-05-28] MEDS ORDERED: INSULIN DETEMIR (LEVEMIR) 100 UNIT/ML SYR SQ SCH (07:00)
[2023-05-28 07:16] LABS: African American GFR (CKD) >90 (>60 ml/min/1.73 sqM); Anion Gap 10 mmol/L; Blood Urea Nitrogen 8 mg/dL (9-20); Calcium 8.8 mg/dL (8.4-10.2); Carbon Dioxide 22 mmol/L (22-30); Chloride 103 mmol/L (98-107); Glucose 236 mg/dL (74-99); Non-African American GFR(CKD) >90 (>60 ml/min/1.73 sqM); Potassium 3.9 mmol/L (3.5-5.1); Sodium 135 mmol/L (137-145)
[2023-05-28 10:21] VITALS: BP 149/88; PULSE 100; RESP 18; TEMP 98.1
--- NOTE | 2023-05-28 11:45 | P.DS ---
Providers Date of admission: 05/26/23 13:49 Expected date of discharge: 05/28/23 Attending physician: Nguyen Renee DO Primary care physician: Stated None Hospital Course: Diabetic ketoacidosis, type I Hospital Course: 33-year-old man with medical history type 1 diabetes on an insulin pump presented for evaluation nausea, vomiting. In the emergency room, patient was afebrile, 123/69, heart rate 102, 97% on room air. CBC showed mild leukocytosis to 11.1. Basic metabolic panel showed sodium of 132, potassium 5.3, chloride 96, CO2 of 10, anion gap of 26, BUN of 19, creatinine of 0.81. Liver function test showed albumin of 5.3. Urinalysis showed glucose of 4+, 4+ ketones. Acetone was positive in the blood. PH was 7.16, pCO2 was 40. Patient was given 2 L of fluid bolus in the emergency room and started on an insulin drip and transferred to the cardiac selective unit after discussion with the emergency room provider. Pt was started on insulin gtt, and had repletion of electrolytes. He recovered quickly within 24 hours, and was transitioned to SQ insulin. 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 I spent 38 minutes coordinating this discharge on 05/28 Gen: in no apparent distress, resting comfortably in bed Eyes: PERRL, no scleral injection or icterus HENT: normocephalic, atraumatic, good hearing acuity, moist mucous membranes Neck: no tracheal deviation, full range of motion Resp: good air exchange, breathing comfortably with no accessory muscle use, no tactile fremitus CVS: good distal perfusion x 4, no pitting edema GI: soft, NTTP, ND, no hepatosplenomegaly : no suprapubic tenderness, no CVAT, palafox catheter not present MSK: no clubbing, no cyanosis, no noted contractures of extremities Skin: no noted rashes, petechiae; temperature of skin is appropriate Neuro: moving all extremities without signs of weakness, CN II-XII intact Psych: cooperative, euthymic mood, insight and judgment intact Patient Condition at Discharge: Good Plan - Discharge Summary Discharge Rx Participant: No New Discharge Prescriptions: Continue INSULIN LISPRO (For Pump) [humaLOG (For Pump)] 0.01 units SQ-PUMP CONTINUOUS Levocetirizine Dihydrochloride [Xyzal] 5 mg PO DAILY Discharge Medication List INSULIN LISPRO (For Pump) [humaLOG (For Pump)] 0.01 units SQ-PUMP CONTINUOUS 05/26/23 [History] Levocetirizine Dihydrochloride [Xyzal] 5 mg PO DAILY 05/26/23 [History] Follow up Appointment(s)/Referral(s): None,Stated [Primary Care Provider] - 1-2 days (Please follow up with your primary physician to notify them you were in the hospital) Patient Instructions/Handouts: Diabetic Ketoacidosis (DC) Discharge Disposition: HOME SELF-CARE
== END 2023-05-28 11:18 | disposition home or self-care (01) | DRG 919 ==
LOC: EC 11:23 → 3SCARD 13:49
PROVIDERS: ADMIT Internal Medicine; ATTEND Internal Medicine
DX: T85.614A Breakdown (mechanical) of insulin pump, initial encounter (principal); T38.3X6A Underdosing of insulin and oral hypoglycemic [antidiabetic] drugs, initial encounter; E10.10 Type 1 diabetes mellitus with ketoacidosis without coma; Z79.4 Long term (current) use of insulin
CPT/HCPCS: 36415; 80048; 80051; 80053; 81003; 82009; 82565; 82803; 82947; 83036; 83605; 83735; 84100; 84520; 85025; 96360; 99291